=== PATIENT | female | born 1985 | race Caucasian/White ===

== ENCOUNTER 2020-09-01 10:03 | Emergency (ER) | payer OTHER ==
[2020-09-01 11:59] LABS: HEMOGLOBIN 12.5 gm/dl (12.3-15.3); RED BLOOD COUNT 4.24 M/UL (4.00-5.10)
[2020-09-01 12:19] LABS: BUN/CREATININE RATIO 17 (0-10)
[2020-09-01] MEDS ORDERED: ZOFRAN4 MG PO (15:56)
[2020-09-01] MEDS ORDERED: BENTYL 20MG TAB20 MG PO (15:56)
[2020-09-01] MEDS ORDERED: PROTONIX40 MG PO (15:56)
== END 2020-09-01 16:07 | disposition home or self-care (01) ==
LOC: ER1 10:03
DX: K85.90 Acute pancreatitis without necrosis or infection, unspecified (principal); Z90.49 Acquired absence of other specified parts of digestive tract; Z98.890 Other specified postprocedural states
CPT/HCPCS: 80053; 81001; 83690; 84703; 85025; 96374; 96375; 99284; C9113; J2405; Q9967